=== PATIENT | female | born 1960 | race Caucasian/White ===

== ENCOUNTER 2024-12-25 06:23 | Day surgery (SDC) | payer OTHER, SELFPAY | END 2024-12-25 10:25 | disposition home or self-care (01) | LOC: GI 06:23 | PROVIDERS: ATTENDING PHYSICIAN Internal Medicine | DX: Z12.11 Encounter for screening for malignant neoplasm of colon (principal); K64.9 Unspecified hemorrhoids; K57.30 Diverticulosis of large intestine without perforation or abscess without bleeding; K63.3 Ulcer of intestine; R12 Heartburn; K22.0 Achalasia of cardia; D12.3 Benign neoplasm of transverse colon; K44.9 Diaphragmatic hernia without obstruction or gangrene; K31.89 Other diseases of stomach and duodenum; Z80.0 Family history of malignant neoplasm of digestive organs; Z86.0101 Personal history of adenomatous and serrated colon polyps | CPT/HCPCS: 45380; 43239; 88305; 88342 ==

== ENCOUNTER → 2025-05-07 12:23 | Outpatient (REF) | payer OTHER, SELFPAY | LOC: HWWDC 12:23 | PROVIDERS: ATTENDING PHYSICIAN Physician Assistant | DX: Z13.820 Encounter for screening for osteoporosis (principal); Z12.31 Encounter for screening mammogram for malignant neoplasm of breast | CPT/HCPCS: 77063; 77067; 77080 ==